=== PATIENT | female | born 1990 | race Hispanic/Latino ===

== ENCOUNTER 2018-11-04 13:22 | Emergency (ER) | payer BC ==
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
[2018-11-04 15:45] VITALS: O2SAT 98; BMI 33.6
[2018-11-04] MEDS ORDERED: Oxycodone/Acetaminophen 5/325 mg Tab PO STA (15:46)
[2018-11-04] MEDS ORDERED: Amoxicillin-Clav 875-125 mg Tab PO STA (15:46)
[2018-11-04 16:28] VITALS: BP 103/76; PULSE 88; RESP 16; TEMP 98.7
== END 2018-11-04 16:27 | disposition home or self-care (01) ==
LOC: ED 13:22
DX: K02.9 Dental caries, unspecified (principal)
CPT/HCPCS: 81025; 96372; 99283; J1885